=== PATIENT | female | born 1995 | race Caucasian/White ===

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

== ENCOUNTER 2017-01-01 06:27 | Outpatient (CLI) | payer OTHER | END 2017-01-01 06:28 | disposition home or self-care (01) | DX: Z36 Encounter for antenatal screening of mother (principal) ==

== ENCOUNTER 2017-01-07 19:22 | Outpatient (CLI) | payer OTHER | END 2017-01-07 22:50 | disposition home or self-care (01) | DX: O46.92 Antepartum hemorrhage, unspecified, second trimester (principal); Z3A.22 22 weeks gestation of pregnancy ==

== ENCOUNTER 2017-01-17 19:12 | Outpatient (CLI) | payer OTHER | END 2017-01-17 20:45 | disposition home or self-care (01) | DX: O46.8X2 Other antepartum hemorrhage, second trimester (principal); Z3A.23 23 weeks gestation of pregnancy ==

== ENCOUNTER 2017-02-04 10:18 | Outpatient (CLI) | payer OTHER | END 2017-02-04 10:19 | disposition home or self-care (01) | DX: Z36 Encounter for antenatal screening of mother (principal) ==

== ENCOUNTER 2017-04-09 13:53 | Outpatient (CLI) | payer OTHER ==
[2017-04-09 15:51] LABS: HCT - HEMATOCRIT 32.8 % (37.0-47.0); HGB - HEMOGLOBIN 10.8 g/dL (12.0-16.0); MEAN CORPUSCULAR HEMOGLOBIN 26.8 pg (27.0-31.0); MEAN CORPUSCULAR VOLUME 81.2 fL (81.0-99.0); MEAN PLATELET VOLUME 8.6 fL (7.9-10.8); RED BLOOD COUNT 4.03 10^6/uL (4.20-5.40); WHITE BLOOD COUNT 15.6 x10^3/uL (4.8-10.8)
== END 2017-04-09 13:54 | disposition home or self-care (01) ==
LOC: LAB 13:53
PROVIDERS: ATTEND Nurse Practitioner Obstetrics & Gynecology
DX: O26.813 Pregnancy related exhaustion and fatigue, third trimester (principal)
CPT/HCPCS: 36415

== ENCOUNTER 2017-04-15 11:40 | Outpatient (CLI) | payer OTHER ==
[2017-04-15 12:33] VITALS: BP 135/73
[2017-04-15] MEDS ORDERED: ONDANSETRON ODT 4 MG TABLET PO ONE (13:00)
[2017-04-15 13:14] LABS: BILIRUBIN,URINE NEGATIVE (NEGATIVE); PH,URINE 6.5 PH (5.0-7.5)
[2017-04-15 13:25] LABS: UR CULTURE IF IND NOT INDICATED
== END 2017-04-15 14:10 | disposition home or self-care (01) ==
LOC: WFO 11:40 → FBP 11:44 → WFO 14:10
PROVIDERS: ATTEND Nurse Practitioner Obstetrics & Gynecology
DX: O21.2 Late vomiting of pregnancy (principal); Z3A.36 36 weeks gestation of pregnancy
CPT/HCPCS: 81001; 99212; Q0162; 87086

== ENCOUNTER 2017-04-18 13:34 | Outpatient (CLI) | payer OTHER ==
[2017-04-18 14:00] VITALS: BP 113/79
== END 2017-04-18 15:00 | disposition home or self-care (01) ==
LOC: WFO 13:34 → FBP 13:37 → WFO 15:00
PROVIDERS: ATTEND Obstetrics & Gynecology
DX: O47.1 False labor at or after 37 completed weeks of gestation (principal); Z3A.36 36 weeks gestation of pregnancy
CPT/HCPCS: 99213

== ENCOUNTER 2017-04-19 15:00 | Outpatient (CLI) | payer OTHER | END 2017-04-19 15:01 | disposition home or self-care (01) | LOC: LAB.R 15:00 | PROVIDERS: ATTEND Nurse Practitioner Obstetrics & Gynecology | DX: Z36 Encounter for antenatal screening of mother (principal) | CPT/HCPCS: 87081 ==

== ENCOUNTER 2017-04-30 14:03 | Outpatient (CLI) | payer OTHER ==
[2017-04-30 14:28] VITALS: BP 133/81
== END 2017-04-30 14:45 | disposition home or self-care (01) ==
LOC: WFO 14:03 → FBP 14:06 → WFO 14:45
PROVIDERS: ATTEND Nurse Practitioner Obstetrics & Gynecology
DX: O36.8190 Decreased fetal movements, unspecified trimester, not applicable or unspecified (principal)
CPT/HCPCS: 59025

== ENCOUNTER 2017-05-10 07:00 | Outpatient (CLI) | payer OTHER ==
[2017-05-10 09:37] VITALS: BP 144/84
== END 2017-05-10 10:10 | disposition home or self-care (01) ==
LOC: WFO 07:00 → FBP 07:01 → WFO 10:10
PROVIDERS: ATTEND Obstetrics & Gynecology
DX: Z34.03 Encounter for supervision of normal first pregnancy, third trimester (principal)
CPT/HCPCS: 99213

== ENCOUNTER 2017-05-11 02:57 | Inpatient (IN) | payer OTHER ==
[2017-05-11] MEDS ORDERED: fentaNYL 100 MCG/2 ML VIAL IVP PRN (03:52)
[2017-05-11] MEDS ORDERED: ONDANSETRON 4 MG/2 ML VIAL IVP PRN (03:52)
[2017-05-11] MEDS ORDERED: SODIUM CHLORIDE FLUSH 0.9% 10 ML SYRINGE IVP PRN (03:52)
--- NOTE | 2017-05-11 04:25 | PROVIDER PROGRESS NOTE ---
Labor Progress Note - Labor Progress Note Labor Progress Note/Additional Text: H&P Dictated #[id number]
[2017-05-11] MEDS ORDERED: SODIUM CHLORIDE FLUSH 0.9% 10 ML SYRINGE IVP ONE (04:26)
[2017-05-11 04:29] LABS: BASOPHILS # (AUTO) 0.1 10^3/uL (0.0-0.1); BASOPHILS % (AUTO) 0.3 %; EOSINOPHILS # (AUTO) 0.1 10^3/uL (0.0-0.7); EOSINOPHILS % (AUTO) 0.8 %; HCT - HEMATOCRIT 33.5 % (37.0-47.0); HGB - HEMOGLOBIN 11.1 g/dL (12.0-16.0); LYMPHOCYTES # (AUTO) 2.3 10^3/uL (1.5-3.5); LYMPHOCYTES % (AUTO) 12.2 %; MEAN CORPUSCULAR VOLUME 78.7 fL (81.0-99.0); MEAN PLATELET VOLUME 9.1 fL (7.9-10.8); MONOCYTES # (AUTO) 1.1 10^3/uL (0.0-1.0); MONOCYTES % (AUTO) 5.9 %; NEUTROPHILS % (AUTO) 80.8 %; RED BLOOD COUNT 4.26 10^6/uL (4.20-5.40); RED CELL DISTRIBUTION WIDTH 14.9 % (12.0-15.0); UNCORRECTED WHITE BLOOD COUNT 18.6 x10^3/uL; WHITE BLOOD COUNT 18.6 x10^3/uL (4.8-10.8)
[2017-05-11 04:37] LABS: CREATININE 0.5 mg/dL (0.4-1.0)
[2017-05-11] MEDS: LACTATED RINGERS 1,000 ML IV SCH ×3 (04:47→12:03)
[2017-05-11 04:53] LABS: BILIRUBIN,URINE NEGATIVE (NEGATIVE)
[2017-05-11 05:01] LABS: UA CHARGE (STRIP ONLY) YES; UR CULTURE IF IND NOT INDICATED
--- NOTE | 2017-05-11 05:38 | HISTORY & PHYSICAL EXAMINATION ---
DATE OF ADMISSION: 05/11/2017 IDENTIFICATION: A 21-year-old G1, P0 with a 39-6/7 week intrauterine , EDC is 05/12/2017, changed by a 7-week ultrasound. HISTORY OF PRESENT ILLNESS: This is a patient of [facility] who presents with complaints of contractions. She had been seen yesterday for the same complaint and was found to be fingertip, 70% effaced, and -2 station. The patient was discharged to home with labor precautions. On today's examination by the RN, the patient has changed to 2 cm dilated, 75% effacement and 0 station. She is erasmo every 2-3 minutes and we find that heart tones are in the 120s. She has a decreased long-term variability on the monitor but no decelerations. PAST MEDICAL HISTORY: Anxiety/depression. PAST SURGICAL HISTORY: None. ALLERGIES: NO KNOWN DRUG ALLERGIES. MEDICATIONS 1. Zoloft 50 mg 1 tab p.o. daily. 2. Zofran 4 mg p.o. p.r.n. 3. Ferrous sulfate b.i.d. SOCIAL HISTORY: She denies any tobacco, alcohol or illicit drug use. Her in- laws just flew in from [place] for support for labor; her is currently deployed in the [place]. Her father is , who lives in [place], and her sister is Alexus, who just moved to [place]. Her pharmacy of choice is [facility] in [place]. Her 's name is Kavita Carranza. She only has a high school education and works at the [employer]. This is a baby girl with anticipated name of Everardo. PAST OBSTETRICAL HISTORY: The patient established care with us since 7 weeks' gestation and has been having consistent visits. However, because our fire range technician Taina is , she has transferred care over to the obstetricians at this point. This has been remarkable for cervical bleeding at 22 weeks' gestation. This bleeding was later resolved after the application of silver nitrate at 23 weeks of gestation. The patient also reported to have had reflux symptoms and was given Zantac at 31 weeks' gestation, and later Zofran at 36 weeks' gestation. Also, she has had some significant anxiety and was started on Zoloft at 36 weeks' gestation. She had significant improvement with Zoloft 50 mg 1 tab p.o. daily at about 38 weeks' gestation. PAST GYNECOLOGICAL HISTORY: She denies any sexually transmitted diseases. She has not had a Pap smear given her age of less than 23 years. FAMILY HISTORY: Lung cancer in maternal line. Diabetes in her father She denies any female carcinoma. REVIEW OF SYSTEMS: The patient denies any diabetes, high blood pressure, thyroid disorders. Negative unless otherwise indicated. OBJECTIVE VITAL SIGNS: Temperature is 98.8, heart rate 104, blood pressure 140/90, respiratory rate 15, O2 saturation 97%. GENERAL: The patient is a well-developed, well-nourished female in some distress secondary to contractions. She is alert and oriented x3. She does have an anxious personality, and appears to be a little simple. HEENT: Within normal limits. She does wear glasses. CARDIOVASCULAR: Rate is regular, no murmurs or rubs. PULMONARY: Lungs clear to auscultation bilaterally. ABDOMEN: Gravid, nontender. Estimated weight is 7-1/2 pounds. labs reveal that she is A positive, antibody screen is negative. RPR is nonreactive, rubella is immune, hepatitis B surface antigen negative, chlamydia and gonorrhea are both negative. A 1 hour GTT is 112. GBS is negative. Her anatomical survey at 21 weeks' gestation on 01/01/2017 was consistent with dates and within normal limits. Placenta is anterior, cervical length 3.02, MAYO is 15.2. ASSESSMENT 1. A 21-year-old G1, P0 with a 39-6/7 weeks intrauterine . 2. Early active labor. 3. Anxiety, currently treated with Zoloft 50 mg 1 tab p.o. daily. PLAN 1. Admit to Labor and Delivery. 2. Will obtain CBC and type and hold, as well as preeclampsia panel given her blood pressure. 3. Epidural for pain control when the patient desires. 4. Will anticipate helping the patient in as it is her desire. 5. Anticipate having [facility] see the baby for pediatric care after delivery. 6. Obtain a dialysis social worker consult given the patient's limited social and financial resources in that the patient is a teenager who at times acts younger than her stated numerical age. 7. Anticipate spontaneous vaginal delivery. JOB #: [id number] EXT JOB #:[id number] AARON
[2017-05-11] MEDS ORDERED: SODIUM CHLORIDE FLUSH 0.9% 10 ML SYRINGE IVP SCH (06:00)
--- NOTE | 2017-05-11 08:23 | PROVIDER PROGRESS NOTE ---
Labor Progress Note - Uterine Monitoring Uterine Monitoring Mode: positive: External toco Contraction Frequency (min/apart): Q6 Contraction Intensity: positive: Moderate to strong Uterine Resting Tone: positive: Soft - Monitoring Monitor Mode: positive: External ultrasound Heart Rate Variability: positive: Moderate (6-25 bmp) Accelerations: positive: Present, 15x15 Decelerations: positive: None Strip Review: positive: Category I - Labor Progress Note Labor Progress Note/Additional Text: 21 yo with a 39w6d IUP Active labor Pre-eclampsia labs WNL Epidural when the patient desires Expect Dairy Frozen Manager consult after delivery Labs, EKG, Meds, Allergy - Lab Results Fish Bones: 05/11/17 04:14 05/11/17 04:14 Other Lab Results: Lab Results x24hrs 05/11/17 05/11/17 05/11/17 Range/Units 04:14 04:14 04:14 WBC 18.6 H (4.8-10.8) x10^3/uL RBC 4.26 (4.20-5.40) 10^6/uL Hgb 11.1 L (12.0-16.0) g/dL Hct 33.5 L (37.0-47.0) % MCV 78.7 L (81.0-99.0) fL MCH 26.0 L (27.0-31.0) pg MCHC 33.0 (32.0-36.0) g/dL RDW 14.9 (12.0-15.0) % Plt Count 205 (130-450) 10^3/uL MPV 9.1 (7.9-10.8) fL Neut # 15.0 H (1.5-6.6) 10^3/uL Lymph # 2.3 (1.5-3.5) 10^3/uL [place] # 1.1 H (0.0-1.0) 10^3/uL Eos # 0.1 (0.0-0.7) 10^3/uL Baso # 0.1 (0.0-0.1) 10^3/uL Absolute Nucleated RBC 0.01 x10^3/uL Nucleated RBCs 0.0 /100WBC Creatinine 0.5 (0.4-1.0) mg/dL Estimated GFR (MDRD) 159 (>89) AST 17 (10-42) IU/L Lactate Dehydrogenase 130 (91-225) IU/L Urine Color Urine Clarity (CLEAR) Urine pH (5.0-7.5) PH Ur Specific [place] (1.002-1.030) Urine Protein (NEGATIVE) mg/dL Urine Glucose (UA) (NEGATIVE) mg/dL Urine Ketones (NEGATIVE) mg/dL Urine Occult Blood (NEGATIVE) Urine Nitrite (NEGATIVE) Urine Bilirubin (NEGATIVE) Urine Urobilinogen (NORMAL) E.U./dL Ur Leukocyte Esterase (NEGATIVE) Ur Microscopic Review Urine Culture Comments Urine Creatinine mg/dL Ur Total Protein Timed mg/dL Protein/Creatinin Ratio (<=0.2) 05/11/17 05/11/17 Range/Units 04:12 04:12 WBC (4.8-10.8) x10^3/uL RBC (4.20-5.40) 10^6/uL Hgb (12.0-16.0) g/dL Hct (37.0-47.0) % MCV (81.0-99.0) fL MCH (27.0-31.0) pg MCHC (32.0-36.0) g/dL RDW (12.0-15.0) % Plt Count (130-450) 10^3/uL MPV (7.9-10.8) fL Neut # (1.5-6.6) 10^3/uL Lymph # (1.5-3.5) 10^3/uL [place] # (0.0-1.0) 10^3/uL Eos # (0.0-0.7) 10^3/uL Baso # (0.0-0.1) 10^3/uL Absolute Nucleated RBC x10^3/uL Nucleated RBCs /100WBC Creatinine (0.4-1.0) mg/dL Estimated GFR (MDRD) (>89) AST (10-42) IU/L Lactate Dehydrogenase (91-225) IU/L Urine Color YELLOW Urine Clarity CLEAR (CLEAR) Urine pH 6.0 (5.0-7.5) PH Ur Specific [place] 1.025 (1.002-1.030) Urine Protein TRACE (NEGATIVE) mg/dL Urine Glucose (UA) NEGATIVE (NEGATIVE) mg/dL Urine Ketones NEGATIVE (NEGATIVE) mg/dL Urine Occult Blood NEGATIVE (NEGATIVE) Urine Nitrite NEGATIVE (NEGATIVE) Urine Bilirubin NEGATIVE (NEGATIVE) Urine Urobilinogen 0.2 (NORMAL) (NORMAL) E.U./dL Ur Leukocyte Esterase NEGATIVE (NEGATIVE) Ur Microscopic Review NOT INDICATED Urine Culture Comments NOT INDICATED Urine Creatinine 112.9 mg/dL Ur Total Protein Timed 36 mg/dL Protein/Creatinin Ratio 0.3 H (<=0.2) - Medications Medications: Ambulatory Orders Medication Instructions Recorded Confirmed Pnv95/Iron Fum/Folic Acid 1 tab PO DAILY 10/10/16 10/10/16 [ [place]] - Allergy Allergy: Allergies Allergy/AdvReac Type Severity Reaction Status Date / Time No Known Drug Allergies Allergy Verified 09/22/16 11:29 Pnv95/Iron Fum/Folic Acid [ [place]] 1 tab PO DAILY 10/10/16
[2017-05-11] MEDS ORDERED: fent/BUPIV 2 MCG/0.125% 250 ML EP ONE (09:20)
[2017-05-11] MEDS ORDERED: ROPIVACAINE 0.2% PF 10 ML VIAL EPI ONE (09:30)
--- NOTE | 2017-05-11 11:52 | PROVIDER PROGRESS NOTE ---
Labor Progress Note - Uterine Monitoring Uterine Monitoring Mode: positive: External toco Contraction Frequency (min/apart): 3-4 Contraction Intensity: positive: Moderate to strong Uterine Resting Tone: positive: Soft - Monitoring Monitor Mode: positive: External ultrasound Heart Rate Variability: positive: Moderate (6-25 bmp) Accelerations: positive: Present, 15x15 Decelerations: positive: None Strip Review: positive: Category I - Vaginal Exam Dilation (in cm): 5 Effacement (%): 100 Station: 0 - Labor Progress Note Labor Progress Note/Additional Text: Epidural placed, AROM clear fluid
[2017-05-11] MEDS ORDERED: fentaNYL 100 MCG/2 ML VIAL ONE (14:44)
[2017-05-11] MEDS ORDERED: OXYTOCIN/LACTATED RINGERS 250 ML IV ONE ×2 (15:30→17:20)
[2017-05-11] MEDS ORDERED: LIDOCAINE 1% 50 ML MDV ONE (16:32)
[2017-05-11] MEDS ORDERED: LIDOCAINE 2% 10 ML MDV ONE (16:32)
--- NOTE | 2017-05-11 17:12 | DELIVERY NOTE ---
Delivery Note - Labor Labor: positive: Spontaneous, Augmented by ARM - Infant Delivery Method Infant Delivery Method: positive: Spontaneous vaginal delivery - Presentation Presentation: positive: Vertex, OA - occiput anterior - Nuchal Cord Nuchal Cord: positive: None - Anesthetic Anesthetic Type: Anesthetic: positive: Lidocaine - 1% plain Volume: positive: Other (20) - Amniotic Fluid Description Amniotic Fluid Description: positive: Clear - Episiotomy Type Episiotomy Type: positive: None - Laceration Laceration: positive: 2nd degree, Labial (bilateral, right 4 cm, left 3 cm) - Suture Suture Type: positive: Vicryl Suture Size: positive: 3-0 - Delivery Outcome Delivery Outcome: positive: Livebirth (Live female, apgars 9/9.) - : positive: Placed in direct skin contact with mother, Suctioned, Stimulated, Warmed, [place] used [place] sex: positive: Female - Cord Cord: positive: 3 vessels - Placenta Placenta: positive: Intact, Spontaneous - Estimated Blood Loss Estimated Blood Loss (in cc): 200 - Post Delivery Events Post Delivery Events: positive: No post delivery events - Delivery Comments (Free Text/Narrative) Delivery Comments (Free Text/Narrative): Pt was noted to be complete at 1606. Physician summoned to L&D. Started pushing at about 1613. Pushed thru 4-5 contractions. At 1626 a live female infant was delivered with Apgars of 9/9 and 7 lb 7.7 oz. Second degree perineal laceration with bilateral labial lacerations. Placenta followed at 1633 , inspected and noted to be intact. Repared was accomplished with 3-O vicril.
[2017-05-11] MEDS ORDERED: diphenhydrAMINE 25 MG CAPSULE PO PRN (17:20)
[2017-05-11] MEDS ORDERED: WITCH HAZEL/GLYCERIN 1 EACH MED..PAD TOP PRN (17:20)
[2017-05-11] MEDS ORDERED: HYDROCORTISONE 1% CREAM 28 GM TUBE PR PRN (17:20)
[2017-05-11] MEDS ORDERED: LACTATED RINGERS 1,000 ML IV SCH (18:00)
[2017-05-11] MEDS: ACETAMINOPHEN 325 MG TABLET PO SCH (18:56)
[2017-05-11] MEDS: IBUPROFEN 800 MG TABLET PO SCH (19:03)
[2017-05-11] MEDS: DOCUSATE SODIUM 100 MG CAPSULE PO SCH (20:48)
[2017-05-11] MEDS: SIMETHICONE CHEW 80 MG TABLET PO SCH (21:52)
[2017-05-12] MEDS: ACETAMINOPHEN 325 MG TABLET PO SCH ×5 (01:16→21:00)
[2017-05-12] MEDS: IBUPROFEN 800 MG TABLET PO SCH ×4 (01:16→20:32)
[2017-05-12] MEDS: oxyCODONE 5 MG TABLET PO PRN ×3 (04:00→15:03)
[2017-05-12 06:11] LABS: BASOPHILS # (AUTO) 0.1 10^3/uL (0.0-0.1); BASOPHILS % (AUTO) 0.4 %; EOSINOPHILS # (AUTO) 0.1 10^3/uL (0.0-0.7); EOSINOPHILS % (AUTO) 0.9 %; HCT - HEMATOCRIT 27.7 % (37.0-47.0); HGB - HEMOGLOBIN 9.1 g/dL (12.0-16.0); LYMPHOCYTES # (AUTO) 2.3 10^3/uL (1.5-3.5); LYMPHOCYTES % (AUTO) 14.4 %; MEAN CORPUSCULAR HEMOGLOBIN 26.2 pg (27.0-31.0); MEAN CORPUSCULAR VOLUME 79.4 fL (81.0-99.0); MEAN PLATELET VOLUME 9.1 fL (7.9-10.8); MONOCYTES # (AUTO) 1.2 10^3/uL (0.0-1.0); MONOCYTES % (AUTO) 7.4 %; NEUTROPHILS # (AUTO) 12.2 10^3/uL (1.5-6.6); NEUTROPHILS % (AUTO) 76.9 %; NUCLEATED RED BLOOD CELLS AUTO 0.1 /100WBC; RED BLOOD COUNT 3.49 10^6/uL (4.20-5.40); RED CELL DISTRIBUTION WIDTH 15.3 % (12.0-15.0); UNCORRECTED WHITE BLOOD COUNT 15.8 x10^3/uL; WHITE BLOOD COUNT 15.8 x10^3/uL (4.8-10.8)
[2017-05-12] MEDS: DOCUSATE SODIUM 100 MG CAPSULE PO SCH ×2 (08:34→20:32)
[2017-05-12] MEDS: SERTRALINE 50 MG TABLET PO SCH (08:35)
--- NOTE | 2017-05-12 08:41 | PROVIDER PROGRESS NOTE ---
Subjective - General Admit Date: 05/11/17 Procedure Date: 05/11/17 Post Op Days: 1 Procedure Performed: - Review of Systems General: positive: No symptoms (Pain 5/10. taking motrin wit good results. breast feeding, regular diet.) Pulmonary: positive: No symptoms Cardiovascular: positive: No symptoms Objective - Patient Data Reviewed Vital Signs: Yes Vital Signs: Vital Signs x48h Temp Pulse Resp BP Pulse Ox 05/12/17 02:00 36.6 C 109 H 20 127/66 99 Weight: Weight 05/10/17 05/11/17 05/12/17 23:59 23:59 23:59 Weight (kg) 80.286 kg Intake & Output: Intake and Output Totals x24h 05/10/17 05/11/17 05/12/17 23:59 23:59 23:59 Output Total 1025 Balance -1025 - Lab Results Lab Results: 05/12/17 05:25 05/11/17 04:14 Other Lab Results: Lab Results x24hrs 05/12/17 Range/Units 05:25 WBC 15.8 H (4.8-10.8) x10^3/uL RBC 3.49 L (4.20-5.40) 10^6/uL Hgb 9.1 L (12.0-16.0) g/dL Hct 27.7 L (37.0-47.0) % MCV 79.4 L (81.0-99.0) fL MCH 26.2 L (27.0-31.0) pg MCHC 33.0 (32.0-36.0) g/dL RDW 15.3 H (12.0-15.0) % Plt Count 145 (130-450) 10^3/uL MPV 9.1 (7.9-10.8) fL Neut # 12.2 H (1.5-6.6) 10^3/uL Lymph # 2.3 (1.5-3.5) 10^3/uL [place] # 1.2 H (0.0-1.0) 10^3/uL Eos # 0.1 (0.0-0.7) 10^3/uL Baso # 0.1 (0.0-0.1) 10^3/uL Absolute Nucleated RBC 0.02 x10^3/uL Nucleated RBCs 0.1 /100WBC - Current Medications Current Medications: Current Medications Generic Name Dose Route Start Last Admin Trade Name Freq PRN Reason Stop Dose Admin Acetaminophen 650 mg 05/11/17 04:00 05/12/17 08:34 Tylenol PO 650 mg Q6H ASHLYN Administration Docusate Sodium 100 mg 05/11/17 21:00 05/12/17 08:34 Colace 100mg Capsule PO 100 mg BID ASHLYN Administration Fentanyl 50 mcg 05/11/17 03:52 05/11/17 05:02 Fentanyl IVP 50 mcg Q1H PRN Administration PAIN Lactated Ringer's 1,000 mls @ 150 mls/hr 05/11/17 04:00 05/11/17 12:03 Lr IV 150 mls/hr .Q6H40M ASHLYN Administration Ibuprofen 800 mg 05/11/17 18:00 05/12/17 08:34 Motrin PO 800 mg Q6H ASHLYN Administration Oxycodone HCl 5 mg 05/11/17 17:20 05/12/17 04:00 Roxicodone PO 5 mg Q4HR PRN Administration Severe Pain Ranitidine HCl 150 mg 05/11/17 09:00 05/12/17 08:35 Zantac PO 150 mg BID ASHLYN Administration Sertraline HCl 50 mg 05/11/17 09:00 05/12/17 08:35 Zoloft PO 50 mg DAILY ASHLYN Administration Simethicone 80 mg 05/11/17 22:00 05/11/17 21:52 Mylicon PO Not Given TID ASHLYN Sodium Chloride 10 ml 05/11/17 06:00 05/11/17 21:00 Normal Saline Flush 0.9% IVP 10 ml Q8HR ASHLYN Administration - Physical Exam General Appearance: positive: No acute distress, Alert Respiratory: positive: Chest non-tender, No respiratory distress, Breath sounds nml Cardiovascular: positive: Regular rate & rhythm, No murmur, No gallop Abdomen: positive: Non-tender, Nml bowel sounds, Mass (At U) Back: negative: CVA tenderness (R), CVA tenderness (L) Skin: positive: Color nml, Warm, Dry Extremities: negative: Calf tenderness, Kristie's sign/cords Neurologic/Psychiatric: positive: Oriented x3 Impression/Plan - Problem List Problem List: Pt is doing well, breast feeding. teaching.
[2017-05-12] MEDS: SIMETHICONE CHEW 80 MG TABLET PO SCH ×3 (14:00→22:00)
[2017-05-13] MEDS: ACETAMINOPHEN 325 MG TABLET PO SCH ×5 (03:24→14:07)
[2017-05-13] MEDS: SIMETHICONE CHEW 80 MG TABLET PO SCH ×4 (06:00→08:58)
[2017-05-13] MEDS: IBUPROFEN 800 MG TABLET PO SCH ×3 (06:30→18:47)
--- NOTE | 2017-05-13 08:38 | PROVIDER PROGRESS NOTE ---
Subjective - General Admit Date: 05/11/17 Procedure Date: 05/11/17 Post Op Days: 2 Procedure Performed: - Review of Systems General: positive: No symptoms (Pain 5/10. taking motrin wit good results. breast feeding, regular diet.), Other (Pain at the perineum. 6/10 right now. 0 /10 whenrere has her Motrin. Breast feeding) Pulmonary: positive: No symptoms Cardiovascular: positive: No symptoms Objective - Patient Data Reviewed Vital Signs: Yes Vital Signs: Vital Signs x48h Temp Pulse Resp BP Pulse Ox 05/13/17 08:01 36.7 C 96 16 133/81 H 99 05/13/17 02:21 36.2 C L 87 18 121/73 99 Weight: Weight 05/11/17 05/12/17 05/13/17 23:59 23:59 23:59 Weight (kg) 80.286 kg Intake & Output: Intake and Output Totals x24h 05/11/17 05/12/17 05/13/17 23:59 23:59 23:59 Output Total 1025 Balance -1025 - Lab Results Lab Results: 05/12/17 05:25 05/11/17 04:14 - Current Medications Current Medications: Current Medications Generic Name Dose Route Start Last Admin Trade Name Freq PRN Reason Stop Dose Admin Acetaminophen 650 mg 05/11/17 04:00 05/13/17 03:24 Tylenol PO Not Given Q6H [facility] Docusate Sodium 100 mg 05/11/17 21:00 05/12/17 20:32 Colace 100mg Capsule PO 100 mg BID ASHLYN Administration Ibuprofen 800 mg 05/11/17 18:00 05/13/17 06:30 Motrin PO 800 mg Q6H ASHLYN Administration Oxycodone HCl 5 mg 05/11/17 17:20 05/12/17 15:03 Roxicodone PO 5 mg Q4HR PRN Administration Severe Pain Ranitidine HCl 150 mg 05/11/17 09:00 05/12/17 08:35 Zantac PO 150 mg BID ASHLYN Administration Sertraline HCl 50 mg 05/11/17 09:00 05/12/17 08:35 Zoloft PO 50 mg DAILY ASHLYN Administration Simethicone 80 mg 05/11/17 22:00 05/13/17 06:00 Mylicon PO Not Given TID ASHLYN - Physical Exam General Appearance: positive: No acute distress, Alert Respiratory: positive: Chest non-tender, No respiratory distress, Breath sounds nml Cardiovascular: positive: Regular rate & rhythm, No murmur, No gallop Abdomen: positive: Non-tender, Mass (U-1) Neurologic/Psychiatric: positive: Oriented x3 Impression/Plan - Problem List Problem List: Plan to Discharge, If baby stays will room in. Reviewed contraception. 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 Pt needs a plan. Breast feeding. Reviewed Mastitis, and NOt contraception. Discharge Meds: MOtrin 800 mg Colace 100 mg Pelvic rest 6 weeks RTC 6 weeks.
[2017-05-13] MEDS: DOCUSATE SODIUM 100 MG CAPSULE PO SCH ×2 (08:40→18:46)
[2017-05-13] MEDS: SERTRALINE 50 MG TABLET PO SCH (08:41)
--- NOTE | 2017-05-13 08:51 | Discharge Plan ---
Discharge Plan Disposition: Home, Self Care Condition: Good Diet: Regular Activity Restrictions: Pelvic rest 6 Wks Shower Restrictions: No Driving Restrictions: No Weight Bearing: Full Weight No Smoking: If you smoke, Please STOP! Call for help. Follow-up with: Joselo Junior MD [Provider Admit Priv/Credential] -
[2017-05-13] MEDS: oxyCODONE 5 MG TABLET PO PRN (18:47)
[2017-05-13 19:11] VITALS: BP 125/72
--- NOTE | 2017-05-13 19:16 | Labor Flowsheet ---
Labor Flowsheet Datetime Report Generated by CPN: 05/13/2017 19:16 Datetime: 05/13/2017 07:58 VITAL SIGNS NBP Sys/Sarita/Mean (mmHg): 133 : 81 : 93 Pulse: 93 LaborFlag: Labor Datetime: 05/13/2017 02:23 Temperature (F): 97.2 Temperature (C): 36.2 Temperature (C): 36.2 Datetime: 05/11/2017 22:15 SpO2 (%): 99 Datetime: 05/11/2017 16:26 Vaginal Exam Comments: viable female. see del notes STAGE 2 Pushing Progress: Descent with Pushing; Molding Noted; Pushing Effectively with Contractions Datetime: 05/11/2017 16:25 FHR Baseline Rate : 145 Comments: head on perineum Datetime: 05/11/2017 16:10 UTERINE ACTIVITY Monitor Mode: External Frequency (min): 2-3 Quality: Strong Duration (sec): 70-90 Pattern: Normal: <= 5 Contractions in 10 Minutes Resting Tone (Palpate): Relaxed ASSESSMENT A Monitor Mode: External US Variability: Moderate 6-25 bpm Accelerations: 15X15 Decelerations: Early Category: Category I PATIENT CARE Oxygen Method: Room Air Datetime: 05/11/2017 16:06 VAGINAL EXAM Dilatation (cm): 10.0 Effacement (%): 100 Station: 2 Exam by: SAMY Stoll Vaginal Bleeding: Small Cervix, Consistency: Soft Cervix, Position: Anterior Datetime: 05/11/2017 15:27 Pain Assessment Comments: comfortable again after bulus. Feels pressure with U/Cs Datetime: 05/11/2017 15:08 Patient Care Comments: voided on towel Datetime: 05/11/2017 14:44 PROCEDURE TIME OUT Procedure Verify: Correct Patient Identity; Correct Side and Site are Marked; Accurate Procedure Co nsent Form; Addressed Need to Administer Antibiotics or Fluids for Irrigation ANESTHESIA Anesthesia Plans: Epidural Datetime: 05/11/2017 14:41 Anesthesia Comments: EpiduraL RATE INCREASED TO 12ML per Candelario, CAST IRON DRAIN PIPE LAYER Datetime: 05/11/2017 12:33 I/O Interventions: Bedpan Given Datetime: 05/11/2017 11:54 Monitor Interventions for UA: [place] Adjusted Datetime: 05/11/2017 11:32 Membrane Status: Ruptured Membranes Rupture Method: Artificial Amniotic Fluid Color: Bloody Amniotic Fluid Amount: Moderate Amniotic Fluid Odor: Normal Membrane Comments: AROM per DR Giem. Poss high leak earlier Datetime: 05/11/2017 11:07 Pool: Positive Nitrazine: Positive Datetime: 05/11/2017 10:29 Pain Presence: None/Denies Pain Coping: Talking Through Contractions Datetime: 05/11/2017 09:05 Communication Comments: Dr Junior on unit, notified of vag exam. OK for epidural if pt desires Datetime: 05/11/2017 08:52 Contraction Comments: returned from jacuzzi FHR Baseline Changes: No Baseline Change Datetime: 05/11/2017 08:09 Pain Type: Cramping Pain Relief Measures: Comfort Measures MATERNAL ASSESSMENT Level of Consciousness: Fully Conscious DTR's/Clonus: DTRs 2+ Headache: Denies Breath Sounds, Left: Clear and Equal Breath Sounds, Right: Clear and Equal Nausea/Vomiting: Denies RUQ Epigastric Pain: Denies Comfort Measures: Breathing/Relaxation; Hot Shower/Tub/Spa COMMUNICATION Communication: Provider at Bedside Datetime: 05/11/2017 06:34 Stage of : Labor Respirations: 16 Temperature Route: Oral Datetime: 05/11/2017 04:52 PAIN Pain Scale: 9
== END 2017-05-13 19:00 | disposition home or self-care (01) | DRG 775 ==
LOC: WFO 02:57 → FBP 02:58 → WFO 03:51 → FBP 03:52
PROVIDERS: ADMIT Obstetrics & Gynecology; ATTEND Obstetrics & Gynecology
PROC: 10E0XZZ Delivery of Products of Conception, External Approach (ICD-10-PCS; principal; 2017-05-11)
PROC: 0KQM0ZZ Repair Perineum Muscle, Open Approach (ICD-10-PCS; 2017-05-11)
PROC: 10907ZC Drainage of Amniotic Fluid, Therapeutic from Products of Conception, Via Natural or Artificial Opening (ICD-10-PCS; 2017-05-11)
DX: O99.344 Other mental disorders complicating childbirth (principal); Z37.0 Single live birth; F41.9 Anxiety disorder, unspecified; O70.1 Second degree perineal laceration during delivery; O99.62 Diseases of the digestive system complicating childbirth; K21.9 Gastro-esophageal reflux disease without esophagitis; F32.9 Major depressive disorder, single episode, unspecified; Z3A.39 39 weeks gestation of pregnancy; Z79.899 Other long term (current) drug therapy
CPT/HCPCS: 36415; 81001; 81003; 82565; 82570; 83615; 84156; 84450; 85025; 87086; 99212

== ENCOUNTER 2017-05-19 12:38 | Emergency (ER) | payer OTHER ==
[2017-05-19 13:21] LABS: BASOPHILS # (AUTO) 0.2 10^3/uL (0.0-0.1); BASOPHILS % (AUTO) 1.3 %; EOSINOPHILS # (AUTO) 0.3 10^3/uL (0.0-0.7); EOSINOPHILS % (AUTO) 2.7 %; HCT - HEMATOCRIT 33.1 % (37.0-47.0); HGB - HEMOGLOBIN 11.1 g/dL (12.0-16.0); LYMPHOCYTES # (AUTO) 2.2 10^3/uL (1.5-3.5); LYMPHOCYTES % (AUTO) 17.4 %; MEAN CORPUSCULAR HGB CONC 33.5 g/dL (32.0-36.0); MEAN CORPUSCULAR VOLUME 77.5 fL (81.0-99.0); MEAN PLATELET VOLUME 7.3 fL (7.9-10.8); MONOCYTES # (AUTO) 0.8 10^3/uL (0.0-1.0); MONOCYTES % (AUTO) 6.5 %; NEUTROPHILS % (AUTO) 72.1 %; NUCLEATED RED BLOOD CELLS AUTO 0.1 /100WBC; RED BLOOD COUNT 4.27 10^6/uL (4.20-5.40); UNCORRECTED WHITE BLOOD COUNT 12.5 x10^3/uL; WHITE BLOOD COUNT 12.5 x10^3/uL (4.8-10.8)
[2017-05-19 13:26] LABS: BILIRUBIN,URINE NEGATIVE (NEGATIVE)
[2017-05-19 13:27] LABS: HCG UR QUAL POSITIVE; UA w/ MICROSCOPIC CHARGE YES
[2017-05-19 13:36] LABS: ALBUMIN/GLOBULIN RATIO 0.7 (1.0-2.2); BILIRUBIN,TOTAL 0.5 mg/dL (0.2-1.0); BUN - BLOOD UREA NITROGEN 21 mg/dL (6-20); CALCIUM 8.3 mg/dL (8.5-10.3); CARBON DIOXIDE - CO2 22 mmol/L (21-32); CHLORIDE 109 mmol/L (101-111); CREATININE 0.6 mg/dL (0.4-1.0); GFR - MDRD 129 (>89); GLUCOSE 88 mg/dL (70-100); LIPASE 23 U/L (22-51); POTASSIUM 3.7 mmol/L (3.5-5.0); SALICYLATE < 6.0 mg/dL; SODIUM 141 mmol/L (135-145); TOTAL PROTEIN 7.5 g/dL (6.7-8.2)
[2017-05-19 13:38] LABS: ACETAMINOPHEN < 10 ug/mL (10-30)
[2017-05-19 13:38] LABS: UR CULTURE IF IND INDICATED; WBC,URINE >25 /HPF (0-5)
--- NOTE | 2017-05-19 15:30 | ED Physician Documentation ---
History of Present Illness - Stated complaint Stated Complaint: DEPRESSION - Chief complaint Chief Complaint: MHE - Additonal information Additional information: hx from pt 21 female newly post had depression during , was on SSRI the stopped 2/2 feeling better now with PP depression sx and anxiety no actual self harm thoughts or plan no homicidal thoughts or plan to harm baby no hallucinations only getting a few hr of sleep otherwise recovering from delivery - no fever cough NVD abd pain etc, bleeding slowed breast feeding Review of Systems Constitutional: denies: Fever Throat: denies: Sore throat Cardiac: denies: Chest pain / pressure Respiratory: denies: Dyspnea GI: denies: Abdominal Pain Musculoskeletal: denies: Neck pain Psychiatric: reports: Depressed, Anxiety. denies: Suicidal, Homicidal, Hallucinations PD PAST MEDICAL HISTORY - Past Medical History Past Medical History: No GI: Other - Past Surgical History Past Surgical History: No - Present Medications Home Medications: Ambulatory Orders Medication Instructions Recorded Confirmed Pnv95/Iron Fum/Folic Acid 1 tab PO DAILY 10/10/16 05/11/17 [ [place]] - Allergies Allergies/Adverse Reactions: Allergies Allergy/AdvReac Type Severity Reaction Status Date / Time No Known Drug Allergies Allergy Verified 09/22/16 11:29 - Social History Does the pt smoke?: No Smoking Status: Never smoker Does the pt drink ETOH?: No Does the pt have substance abuse?: No - Immunizations Immunizations are current?: Yes - POLST Patient has POLST: No PD ED PE NORMAL - Vitals Vital signs reviewed: Yes - Neck Neck: Supple, no meningeal sign - Cardiac Cardiac: RRR - Respiratory Respiratory: No respiratory distress, Clear bilaterally - Abdomen Abdomen: Soft, Non tender - Derm Derm: Normal color - Neuro Neuro: Alert and oriented X 3 - Psych Psych: Other (sad but denies SI HI hallucinations) Results - Vitals Vitals: Vital Signs - 24 hr 05/19/17 12:46 Temperature 37.0 C Heart Rate 86 Respiratory 18 Rate Blood Pressure 136/95 H O2 Saturation 99 Oxygen O2 Source Room air - Labs Labs: Laboratory Tests 05/19/17 05/19/17 05/19/17 13:05 13:05 13:13 WBC 12.5 H RBC 4.27 Hgb 11.1 L Hct 33.1 L MCV 77.5 L MCH 26.0 L MCHC 33.5 RDW 15.0 Plt Count 319 MPV 7.3 L Neut # 9.0 H Lymph # 2.2 Lamb # 0.8 Eos # 0.3 Baso # 0.2 H Absolute Nucleated RBC 0.01 Nucleated RBCs 0.1 Sodium Potassium Chloride Carbon Dioxide Anion Gap BUN Creatinine Estimated GFR (MDRD) Glucose Calcium Total Bilirubin AST ALT Alkaline Phosphatase Total Protein Albumin Globulin Albumin/Globulin Ratio Lipase Urine Color YELLOW Urine Clarity CLOUDY Urine pH 6.0 Ur Specific [place] 1.025 Urine Protein TRACE Urine Glucose (UA) NEGATIVE Urine Ketones NEGATIVE Urine Occult Blood NEGATIVE Urine Nitrite NEGATIVE Urine Bilirubin NEGATIVE Urine Urobilinogen 0.2 (NORMAL) Ur Leukocyte Esterase TRACE H Urine RBC 0-5 Urine WBC >25 H Ur Squamous Epith Cells FEW Squamous Urine Bacteria None Seen Ur Microscopic Review INDICATED Urine Culture Comments INDICATED Urine HCG, Qual POSITIVE Salicylates Urine Opiates Screen NEGATIVE Ur Oxycodone Screen NEGATIVE Urine Methadone Screen NEGATIVE Ur Propoxyphene Screen NEGATIVE Acetaminophen Ur Barbiturates Screen NEGATIVE Ur Tricyclics Screen NEGATIVE Ur Phencyclidine Scrn NEGATIVE Ur Amphetamine Screen NEGATIVE U Methamphetamines Scrn NEGATIVE U Benzodiazepines Scrn NEGATIVE Urine Cocaine Screen NEGATIVE U Cannabinoids Screen NEGATIVE Ethyl Alcohol 05/19/17 13:13 WBC RBC Hgb Hct MCV MCH MCHC RDW Plt Count MPV Neut # Lymph # Lamb # Eos # Baso # Absolute Nucleated RBC Nucleated RBCs Sodium 141 Potassium 3.7 Chloride 109 Carbon Dioxide 22 Anion Gap 10.0 BUN 21 H Creatinine 0.6 Estimated GFR (MDRD) 129 Glucose 88 Calcium 8.3 L Total Bilirubin 0.5 AST 17 ALT 17 Alkaline Phosphatase 87 Total Protein 7.5 Albumin 3.2 Globulin 4.3 H Albumin/Globulin Ratio 0.7 L Lipase 23 Urine Color Urine Clarity Urine pH Ur Specific [place] Urine Protein Urine Glucose (UA) Urine Ketones Urine Occult Blood Urine Nitrite Urine Bilirubin Urine Urobilinogen Ur Leukocyte Esterase Urine RBC Urine WBC Ur Squamous Epith Cells Urine Bacteria Ur Microscopic Review Urine Culture Comments Urine HCG, Qual Salicylates < 6.0 Urine Opiates Screen Ur Oxycodone Screen Urine Methadone Screen Ur Propoxyphene Screen Acetaminophen < 10 L Ur Barbiturates Screen Ur Tricyclics Screen Ur Phencyclidine Scrn Ur Amphetamine Screen U Methamphetamines Scrn U Benzodiazepines Scrn Urine Cocaine Screen U Cannabinoids Screen Ethyl Alcohol < 5.0 PD MEDICAL DECISION MAKING - ED course ED course: HCG likely still + from recent delivery pt seen by SW Lacey - feels pt not suicidal or homicidal and not a danger to self or baby and can be dced with resources such as: [facility] in home visiting RN for breast feeding support also non pharm suggestion such as guided imagery see [facility] consult Departure - Departure Disposition: Home, Self Care Clinical Impression: Post depression Condition: Good Instructions: Depression Comments: Your labs were fine You met with our pediatric social worker who feels that you are safe to go home and has recommended some helpful resources to assist you through the period: [facility]iting [facility] RN The pediatric social worker also provided some non pharmaceutical suggestions for ways to address depression If at any time you feel that things are getting worse and have thoughts of harming yourself or the baby, please come back right away Also please have your blood pressure rechecked - it was high when you first arrived
[2017-05-19 15:31] VITALS: BP 125/70
== END 2017-05-19 15:52 | disposition home or self-care (01) ==
LOC: ED 12:38
DX: F53 Mental and behavioral disorders associated with the puerperium, not elsewhere classified (principal)
CPT/HCPCS: 36415; 80053; 80306; 80307; 80320; 80329; 81001; 81003; 81025; 83690; 85025; 87086; 99283

== ENCOUNTER 2017-06-08 08:00 | Outpatient (CLI) | payer OTHER | END 2017-06-08 08:01 | disposition home or self-care (01) | LOC: LAB.R 08:00 | PROVIDERS: ATTEND Obstetrics & Gynecology | DX: Z39.2 Encounter for routine postpartum follow-up (principal); N89.8 Other specified noninflammatory disorders of vagina; Z11.3 Encounter for screening for infections with a predominantly sexual mode of transmission | CPT/HCPCS: 87070; 87480; 87491; 87510; 87591; 87660 ==